=== PATIENT | male | born 1970 | race Caucasian/White ===

== ENCOUNTER 2018-08-08 07:24 | Day surgery (SDC) | payer BC ==
[2018-08-08] MEDS ORDERED: LIDOCAINE 1% (MDV) 20 ML INJ (07:44)
[2018-08-08] MEDS ORDERED: IODIXANOL LOCM 100 ML BTL (07:44)
[2018-08-08 08:19] LABS: ADD MAN DIFF? NO
[2018-08-08 08:22] LABS: BASOPHIL # 0.1 10^3/ul (0.0-0.1); BASOPHILS % 0.5 % (0.0-2.0); EOSINOPHILS # 0.3 10^3/ul (0.0-0.5); HEMATOCRIT 44.4 % (42.0-52.0); HEMOGLOBIN 15.4 g/dl (14.0-18.0); LYMPHOCYTES # 3.7 10^3/ul (0.8-2.9); LYMPHOCYTES % 26.9 % (15.0-51.0); MEAN CORPUSCULAR HEMOGLOBIN 29.7 pg (29.0-33.0); MEAN CORPUSCULAR HGB CONC 34.7 g/dl (32.0-37.0); MEAN CORPUSCULAR VOLUME 85.5 fl (82.0-101.0); MEAN PLATELET VOLUME 9.5 fl (7.4-10.4); MONOCYTE # 0.7 10^3/ul (0.3-0.9); MONOCYTES % 5.2 % (0.0-11.0); NEUTROPHIL # 8.9 10^3/ul (1.6-7.5); NEUTROPHILS % 64.5 % (39.0-77.0); PLATELET COUNT 388 10^3/UL (140-415); RED BLOOD COUNT 5.19 10^6/ul (4.70-6.10); RED CELL DISTRIBUTION WIDTH 13.1 % (11.5-14.5)
[2018-08-08] MEDS: FAMOTIDINE 20 MG TAB PO (08:23)
[2018-08-08] MEDS: DIAZEPAM 5 MG TAB PO (08:23)
[2018-08-08] MEDS: DIPHENHYDRAMINE 50 MG CAP PO (08:23)
[2018-08-08 08:29] LABS: HOLD TRANSMISSIONS 1
[2018-08-08 08:30] LABS: WHITE BLOOD COUNT 13.8 10^3/ul (4.8-10.8)
[2018-08-08] MEDS ORDERED: SOD CHLORIDE 0.45% 1,000 ML IV (08:30)
[2018-08-08 08:43] LABS: INR 0.88; PT RATIO 0.9
[2018-08-08 08:44] LABS: PARTIAL THROMBOPLASTIN TIME 30.1 Sec (23.0-35.0)
[2018-08-08 08:50] LABS: ANION GAP 13 (5-13); BLOOD UREA NITROGEN 18 mg/dl (7-20); CALCIUM 9.5 mg/dl (8.4-10.2); CARBON DIOXIDE 23 mmol/L (21-31); CHLORIDE 106 mmol/L (97-110); CHOL/HDL RATIO 6.8 RATIO; CHOLESTEROL 240 mg/dl (100-200); CREATININE 1.03 mg/dl (0.61-1.24); Estimated GFR > 60 mL/min (>60); GLUCOSE 115 mg/dl (70-220); HDL CHOLESTEROL 35 mg/dl (27-67); LDL CHOLESTEROL,CALCULATED 165 mg/dl; POTASSIUM 4.3 mmol/L (3.5-5.1); SODIUM 142 mmol/L (135-144); TRIGLYCERIDES 201 mg/dl (0-149)
[2018-08-08] MEDS ORDERED: FENTAnyl 50 MCG/ML VIAL (08:50)
[2018-08-08] MEDS ORDERED: MIDAZOLAM 1 MG/ML 2 ML INJ (08:50)
[2018-08-08] MEDS ORDERED: VERAPAMIL 5 MG INJ (08:50)
[2018-08-08] MEDS ORDERED: NITROGLYCERIN (IC) 100 MCG/ML INJ (08:51)
[2018-08-08] MEDS ORDERED: AL HYDROX/MG HYDROX/SIMETH 30 ML CUP PO (10:30)
[2018-08-08] MEDS ORDERED: ACETAMINOPHEN 325 MG TAB PO (10:30)
[2018-08-08] MEDS ORDERED: ONDANSETRON 4 MG INJ IV (10:30)
[2018-08-08] MEDS ORDERED: morphine 2 MG INJ IV (10:30)
[2018-08-08] MEDS: SOD CHLORIDE 0.9% 1,000 ML IV (10:45)
== END 2018-08-08 13:10 | disposition home or self-care (01) ==
LOC: CCL 07:24 → SDS 07:24 → CCL 13:10
DX: I25.10 Atherosclerotic heart disease of native coronary artery without angina pectoris (principal); I10 Essential (primary) hypertension; E78.5 Hyperlipidemia, unspecified; F17.200 Nicotine dependence, unspecified, uncomplicated
CPT/HCPCS: 71045; 80048; 80061; 85025; 85610; 85730; 90686; 93005; 93458